=== PATIENT | female | born 1960 | race Caucasian/White ===

== ENCOUNTER 2018-09-19 12:15 | Emergency (ER) | payer BC, OTHER ==
--- NOTE | 2018-09-19 12:56 | EDPHYS ---
Physician Documentation [facility] Name: Bairon Alvarado Age: 58 yrs Sex: Female : 1960 Arrival Date: 09/19/2018 Time: 12:17 Bed 4 Private MD: ED Physician Liu Haas HPI: 09/19 12:50 This 58 yrs old Female presents to ER via Ambulatory with complaints of Feet kb Swelling, Insect Bite. 12:50 The patient presents with cellulitis of the right foot. Description: erythematous, kb swollen, warm. Onset: The symptoms/episode began/occurred yesterday. Possible cause(s): insect sting. Associated signs and symptoms: Pertinent positives: erythema, swelling, blistering. Modifying factors: the symptoms are alleviated by nothing, the symptoms are aggravated by nothing. Severity of symptoms: At their worst the symptoms were moderate, in the emergency department the symptoms are unchanged. The patient has not experienced similar symptoms in the past. The patient has not recently seen a physician. Pt reports she had a wasp sting on her foot that she had been soaking in epsom salt and things like that. States it was throbbing yesterday at work so she made a paste out of table salt and water, put it on the sting and covered it with a hot compress ("as hot as I could get it"). States now it is blistered up and whole foot is red and swollen.. Historical: - Allergies: 12:31 Codeine; iw 12:31 Sulfa (Sulfonamide Antibiotics); iw - Home Meds: 12:31 trazodone 50 mg Oral tab 2 times per day [Active]; iw - PMHx: 12:31 None; iw - PSHx: 12:31 breast augmentation; right ankle; Hysterectomy; iw - Immunization history:: Adult Immunizations unknown. - Social history:: Smoking status: Patient uses tobacco products, smokes one-half pack cigarettes per day. - Ebola Screening: : Patient negative for fever greater than or equal to 101.5 degrees Fahrenheit, and additional compatible Ebola Virus Disease symptoms Patient denies exposure to infectious person Patient denies travel to an Ebola-affected area in the 21 days before illness onset No symptoms or risks identified at this time. ROS: 12:48 Constitutional: Negative for fever, chills, and weight loss, ENT: Negative for injury, kb pain, and discharge, Neck: Negative for injury, pain, and swelling, Cardiovascular: Negative for chest pain, palpitations, and edema, Respiratory: Negative for shortness of breath, cough, wheezing, and pleuritic chest pain, Abdomen/GI: Negative for abdominal pain, nausea, vomiting, diarrhea, and constipation, Back: Negative for injury and pain, Neuro: Negative for headache, weakness, numbness, tingling, and seizure. 12:48 Skin: Positive for cellulitis, erythema, swelling, of the right foot, blistering. Exam: 12:48 Constitutional: This is a well developed, well nourished patient who is awake, alert, kb and in no acute distress. Head/Face: Normocephalic, atraumatic. Neck: Trachea midline, no thyromegaly or masses palpated, and no cervical lymphadenopathy. Supple, full range of motion without nuchal rigidity, or vertebral point tenderness. No Meningismus. Chest/axilla: Normal chest wall appearance and motion. Nontender with no deformity. No lesions are appreciated. Cardiovascular: Regular rate and rhythm with a normal S1 and S2. No gallops, murmurs, or rubs. Normal PMI, no JVD. No pulse deficits. Respiratory: Lungs have equal breath sounds bilaterally, clear to auscultation and percussion. No rales, rhonchi or wheezes noted. No increased work of breathing, no retractions or nasal flaring. Abdomen/GI: Soft, non-tender, with normal bowel sounds. No distension or tympany. No guarding or rebound. No evidence of tenderness throughout. MS/ Extremity: Pulses equal, no cyanosis. Neurovascular intact. Full, normal range of motion. Neuro: Awake and alert, GCS 15, oriented to person, place, time, and situation. Cranial nerves II-XII grossly intact. Motor strength 5/5 in all extremities. Sensory grossly intact. Cerebellar exam normal. Normal gait. 12:48 Skin: cellulitis, that is moderate, on the right foot. Vital Signs: 12:31 BP 128 / 66; Pulse 86; Resp 16; Temp 99.4(TE); Pulse Ox 96% on R/A; Weight 81.65 kg; iw Height 5 ft. 10 in. (177.80 cm); 13:22 BP 112 / 66; Pulse 82; Resp 16; Pulse Ox 99% ; sv 12:31 Body Mass Index 25.83 (81.65 kg, 177.80 cm) iw MDM: 12:28 Patient medically screened. kb 12:48 Data reviewed: vital signs, nurses notes. Data interpreted: Pulse oximetry: on room air kb is 96 %. Interpretation: normal. Counseling: I had a detailed discussion with the patient and/or guardian regarding: the historical points, exam findings, and any diagnostic results supporting the discharge/admit diagnosis, the need for outpatient follow up, a family practitioner, to return to the emergency department if symptoms worsen or persist or if there are any questions or concerns that arise at home. Administered Medications: 12:58 Drug: Ibuprofen 600 mg Route: PO; sv 13:20 Follow up: Response: No adverse reaction sv 12:59 Drug: Clindamycin 300 mg Route: PO; sv 13:20 Follow up: Response: No adverse reaction sv 12:59 Drug: Doxycycline 100 mg Route: PO; sv 13:20 Follow up: Response: No adverse reaction sv Disposition: 09/19/18 12:55 Discharged to Home. Impression: Cellulitis of right lower limb. - Condition is Stable. - Discharge Instructions: Cellulitis, Adult, [id number]. - Prescriptions for Clindamycin HCl 300 mg Oral Capsule - take 1 capsule by ORAL route every 6 hours for 10 days; 40 capsule. Doxycycline Hyclate 100 mg Oral Tablet - take 1 tablet by ORAL route every 12 hours; 20 tablet. - Medication Reconciliation Form, Thank You Letter, Antibiotic Education, Prescription Opioid Use form. - Follow up: Emergency Department; When: As needed; Reason: Worsening of condition. Follow up: Private Physician; When: 2 - 3 days; Reason: Recheck today's complaints, Continuance of care, Re-evaluation by your physician. Addendum: 09/25/2018 16:42 Co-signature as Attending Physician, Liu Haas MD I agree with the assessment and c muro plan of care. Signatures: Katya Lomeli FNP-C FNP-Flora Roca RN RN Liu Lebron MD MD cha Williams, Irene RN RN iw Corrections: (The following items were deleted from the chart) 09/19 13:24 12:55 09/19/2018 12:55 Discharged to Home. Impression: Cellulitis of right lower limb. sv Condition is Stable. Forms are Medication Reconciliation Form, Thank You Letter, Antibiotic Education, Prescription Opioid Use. Follow up: Emergency Department; When: As needed; Reason: Worsening of condition. Follow up: Private Physician; When: 2 - 3 days; Reason: Recheck today's complaints, Continuance of care, Re-evaluation by your physician. kb
--- NOTE | 2018-09-19 12:56 | ER ---
Nurse's Notes [facility] Name: Bairon Alvarado Age: 58 yrs Sex: Female : 1960 Arrival Date: 09/19/2018 Time: 12:17 Bed 4 Private MD: Diagnosis: Cellulitis of right lower limb Presentation: 09/19 12:28 Presenting complaint: Patient states: wasp sting to right foot X 2 days, pt placed salt iw over wound while at work yesterday, now has swelling, blistering to top of foot. Transition of care: patient was not received from another setting of care. Onset of symptoms was September 19, 2018. Risk Assessment: Do you want to hurt yourself or someone else? Patient reports no desire to harm self or others. Initial Sepsis Screen: Does the patient meet any 2 criteria? No. Patient's initial sepsis screen is negative. Does the patient have a suspected source of infection? No. Patient's initial sepsis screen is negative. Care prior to arrival: None. 12:28 Method Of Arrival: Ambulatory iw 12:28 Acuity: JACQUELINE 3 iw Historical: - Allergies: 12:31 Codeine; iw 12:31 Sulfa (Sulfonamide Antibiotics); iw - Home Meds: 12:31 trazodone 50 mg Oral tab 2 times per day [Active]; iw - PMHx: 12:31 None; iw - PSHx: 12:31 breast augmentation; right ankle; Hysterectomy; iw - Immunization history:: Adult Immunizations unknown. - Social history:: Smoking status: Patient uses tobacco products, smokes one-half pack cigarettes per day. - Ebola Screening: : Patient negative for fever greater than or equal to 101.5 degrees Fahrenheit, and additional compatible Ebola Virus Disease symptoms Patient denies exposure to infectious person Patient denies travel to an Ebola-affected area in the 21 days before illness onset No symptoms or risks identified at this time. Screenin:58 Abuse screen: Denies threats or abuse. Denies injuries from another. Nutritional sv screening: No deficits noted. Tuberculosis screening: No symptoms or risk factors identified. Fall Risk None identified. Assessment: 12:58 General: Appears in no apparent distress. uncomfortable, well developed, Behavior is sv calm, cooperative, appropriate for age. Pain: Complains of pain in right foot. Neuro: Level of Consciousness is awake, alert, obeys commands, Oriented to person, place, time, situation, Moves all extremities. Full function Gait is steady. Respiratory: Respiratory effort is even, unlabored, Respiratory pattern is regular, symmetrical. Derm: Skin is intact, is healthy with good turgor, cellulitis noted to the dorsum of the right foot, weeping, open. Skin is pink, warm \T\ dry. Musculoskeletal: Range of motion: intact in all extremities. Vital Signs: 12:31 BP 128 / 66; Pulse 86; Resp 16; Temp 99.4(TE); Pulse Ox 96% on R/A; Weight 81.65 kg; iw Height 5 ft. 10 in. (177.80 cm); 13:22 BP 112 / 66; Pulse 82; Resp 16; Pulse Ox 99% ; sv 12:31 Body Mass Index 25.83 (81.65 kg, 177.80 cm) iw ED Course: 12:17 Patient arrived in ED. as 12:28 [facility]eli [facility]C [facility]. kb 12:28 Liu Haas MD is Attending Physician. kb 12:29 Triage completed. iw 12:31 Arm band placed on. iw 12:52 Flora Manzanares, LEAH is Primary Nurse. sv 12:58 Patient has correct armband on for positive identification. Bed in low position. Call sv light in reach. Door closed. Head of bed elevated. 13:21 No provider procedures requiring assistance completed. Patient did not have IV access sv during this emergency room visit. Wound care: to cellulitis located on dorsum of right foot was cleaned with with NS, dressed with 4X4s, Kerlix, adaptic gauze, Patient tolerated well. Administered Medications: 12:58 Drug: Ibuprofen 600 mg Route: PO; sv 13:20 Follow up: Response: No adverse reaction sv 12:59 Drug: Clindamycin 300 mg Route: PO; sv 13:20 Follow up: Response: No adverse reaction sv 12:59 Drug: Doxycycline 100 mg Route: PO; sv 13:20 Follow up: Response: No adverse reaction sv Outcome: 12:55 Discharge ordered by . kb 13:22 Discharged to home ambulatory. sv 13:22 Condition: stable 13:22 Discharge instructions given to patient, Instructed on discharge instructions, follow up and referral plans. medication usage, wound care, Demonstrated understanding of instructions, follow-up care, medications, wound care, Prescriptions given X 2. 13:24 Patient left the ED. sv Signatures: Katya Lomeli, PREET [place]-Flora Roca, RN RN Andreea Adler Irene, RN RN iw
[2018-09-19] MEDS ORDERED: CLINDAMYCIN HCL 150 MG CAP ONE (13:07)
[2018-09-19] MEDS ORDERED: IBUPROFEN 400 MG TAB ONE (13:08)
[2018-09-19] MEDS ORDERED: DOXYCYCLINE 100 MG CAP PO ONE (13:08)
[2018-09-19] MEDS ORDERED: IBUPROFEN 200 MG TAB PO ONE (13:08)
== END 2018-09-19 13:24 | disposition home or self-care (01) ==
LOC: ER 12:15
DX: L03.115 Cellulitis of right lower limb (principal); F17.210 Nicotine dependence, cigarettes, uncomplicated; Z88.2 Allergy status to sulfonamides; Z88.5 Allergy status to narcotic agent
CPT/HCPCS: 99283